=== PATIENT | female | born 1955 | race Caucasian/White ===

== ENCOUNTER 2016-10-08 12:09 | Observation (INO) | payer BC ==
[2016-10-08] MEDS ORDERED: Midazolam* 1 MG/ML 10 ML VIAL (10 MG) ONE (12:49)
[2016-10-08] MEDS ORDERED: Meperidine SYRINGE* 50 MG/ML ONE (12:49)
[2016-10-08] MEDS ORDERED: Clindamycin 600 MG IVPREMIX(* 600 MG/50 ML SDV ONE (12:50)
[2016-10-08] MEDS: D5W 1/2 NS KCl 20 Meq 1000 ML* 1,000 ML IV SCH (17:53)
[2016-10-08] MEDS: HYDROcodone/ACET. 7.5/325 LIQ* 15 ML UDC PO PRN ×2 (17:56→22:14)
[2016-10-09] MEDS: D5W 1/2 NS KCl 20 Meq 1000 ML* 1,000 ML IV SCH (04:09)
[2016-10-09] MEDS: HYDROcodone/ACET. 7.5/325 LIQ* 15 ML UDC PO PRN (05:01)
--- NOTE | 2016-10-09 05:42 | PRO ---
DATE: 10/08/16 - ROOM #[id number] REFERRING PHYSICIANS: Tonya Perales MD; Saturnino Jang MD; January Winchester MD * PROCEDURE: Upper gastrointestinal endoscopy and biopsy for CLOtest; percutaneous gastrostomy. 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 She had some chemo yesterday. Radiation will start in 6 days. Tomorrow, she will have a PowerPort placed. She has never had an upper endoscopy. She does not have chronic dyspeptic complaints. She does suffer from Crohn's disease and has had two colon resections. Informed consent was obtained during office discussions and today another opportunity to answer questions was given and all questions answered. ENDOSCOPIST: Dr. Courtney. MEDICATIONS: Midazolam 13, meperidine 50, and preprocedure clindamycin 600 mg IV. FINDINGS: She is a healthy-appearing, middle-aged woman, in no distress. EGD: Larynx - not seen as the scope was curved over the tongue and directly intubated. Esophagus - easily entered and the mucosa is normal in the upper, mid, and lower esophagus with the EG junction at 39 to 40, slightly loose, but there are no chronic changes and no peptic changes whatsoever. Stomach - generally normal mucosa in the cardia, fundus, body, and antrum. There was no erythema and no abnormality whatsoever. A CLOtest taken. Finger indentation was obtained at this time as the patient was supine. Duodenum - normal pylorus, bulb, and second through fourth portions. There were no scars or chronic changes at all. Scope was brought back into the stomach and reconfirming good transillumination and finger indentation. The skin was prepped and anesthetized with 1% lidocaine and then the trocar placed readily into the gastric cavity and the ___ __ performed in standard fashion. There were no obvious complications. A brief endoscopic recheck showed no bleeding. The external attachments were deployed. IMPRESSION: 1. Normal upper endoscopy. 2. Status post percutaneous gastrostomy placement - the patient will be admitted for observation and training to occur. Tomorrow, a PowerPort will be inserted. [id number]/[facility] #: [id number] [facility]
[2016-10-09] MEDS ORDERED: Ondansetron INJ* 2 MG/ML VIAL ONE (08:40)
[2016-10-09] MEDS ORDERED: Ondansetron INJ* 2 MG/ML VIAL IV PRN (09:21)
[2016-10-09] MEDS ORDERED: fentaNYL* 50 MCG/ML 5 ML VIAL (250 MCG VIAL) ONE (09:50)
[2016-10-09] MEDS ORDERED: Midazolam* 1 MG/ML 5 ML VIAL (5 MG) ONE (09:50)
[2016-10-09] MEDS ORDERED: Clindamycin 600 MG IVPREMIX(* 600 MG/50 ML SDV IV ONE (10:00)
[2016-10-09 12:45] VITALS: BP 122/71
--- NOTE | 2016-10-09 15:34 | DS ---
CC: Dr. Amaury Courtney; Dr. Perales; Dr. Saturnino Jang * DATE OF ADMISSION: 10/08/2016. DATE OF DISCHARGE: 10/09/2016. REASON FOR ADMISSION: Tongue cancer, PEG tube placement. HISTORY OF PRESENT ILLNESS: This is a kavin, 61-year-old woman who has a history of quiescent Crohn's disease who was recently diagnosed with tongue cancer. In preparation for chemo radiation, arrangements were made for outpatient PEG tube placement. This was successfully done endoscopically on . The patient was admitted overnight and this morning underwent a power port placement without incident. She is now feeling well and is ready for discharge. PAST MEDICAL HISTORY: Crohn's disease for which she takes Apriso. AMBULATORY MEDICATIONS: 1. Apriso two tablets daily. 2. Hydrocodone/acetaminophen as needed. HOSPITAL COURSE: The patient was admitted overnight. She had no fevers overnight. She required one dose of Lortab for pain, but did not require any later on on the day of discharge. She is tolerating a diet. The PEG tube site was looked at postop day number one. It was clean and dry without any drainage or significant tenderness. The patient was educated on PET tube maintenance. Literature was provided and nutrition and nursing supports were initiated for education on PEG tube maintenance and nutritional needs when they develop. It was recommended by the professor of literature for the patient to have six cans as a goal of Osmolite 1.2. [id number]/[facility] #: [id number] [facility]
--- NOTE | 2016-10-10 09:11 | RAD ---
CPT II Codes: 6045F Procedure performed: Mediport placement with sonographic and fluoroscopic guidance. Date of service: October 09, 2016 Indication for procedure: Oropharyngeal squamous cell carcinoma Comparison: PET/CT dated September 30, 2016 Contrast: None Fluoroscopy Time: 51 seconds Anesthesia: Conscious sedation with IV Fentanyl and Versed as well as local 1% lidocaine injected locally overlying the venotomy site, periclavicular area and upper chest. Conscious sedation time: Timeout: 1115 hours Case end: 1142 hours Total conscious sedation time: 27 minutes Additional medications: Clindamycin 600 mg. Procedure Narration and Imaging Findings: The risks and benefit of the procedure were discussed with the patient and informed consent was obtained. The patient received Clindamycin 600 mg immediately before the procedure for antibiotic prophylaxis. The patient was placed in the supine position in the fluoroscopy suite and the neck and upper chest was prepped and draped according to standard sterile protocol. A formal time out was performed by Dr. Underwood in the presence of the IR staff and all agreed on the patient, procedure and laterality. The skin overlying the right jugular vein and upper chest was anesthetized with 1% lidocaine. Real time ultrasound imaging shows the internal jugular vein is patent and determined to be adequate for catheter placement. Utilizing real time ultrasound visualization the internal jugular vein was accessed with an 18 gauge needle. An image was recorded and saved confirming appropriate intraluminal position of the needle tip. Blood return further confirmed position. Through the needle and under fluoroscopic control a 0.035" guidewire was advanced down the IVC confirming appropriate venous access. An image of the wire in the IVC was recorded. Over the wire a peel away sheath was gently advanced into the IVC under fluoroscopic guidance. Attention was now directed to creation of the subcutaneous mediport pocket. An incision below the clavicle was made and using blunt instrument dissection, a subcutaneous port was created. From the superior edge of the incision a tunneling device was used to advance the catheter from the pocket to the venotomy. The port end of the catheter was clamped to prevent air aspiration into the catheter. The catheter was pulled through and advanced into the peel away sheath under fluoroscopic guidance. The sheath was peeled away and the catheter tip was pulled back so that it terminated at the cavoatrial junction. The catheter was cut to a length of 23.5 cm, attached to the mediport and secured with the pericatheter cuff. The port was accessed with a Garcia needle and blood was aspirated from the port and then flushed with sterile saline with minimal effort. The port was then flushed with approximately 3mL of 100 units/mL of heparin. The pocket was flushed with sterile saline prior to inserting the mediport into the pocket. A fluoroscopic image was saved demonstrating appropriate position of all parts of the mediport before closure of the incision. The pocket was closed with interrupted absorbable suture then dressed with Steri strips and sterile gauze. The venotomy site was dressed with Steri strips, sterile gauze and Tegaderm. The patient tolerated the procedure well and left the angiography suite in stable condition. SUMMARY OF PROCEDURE, IMAGING FINDINGS AND INTERVENTIONS PERFORMED: 1. Diagnostic studies performed: * Visualization of the upper central venous system during catheter and wire advancement. * Sonographic evaluation of the right internal jugular vein to determine patency and flow as well as for needle guidance during venotomy. 2. Interpretation of diagnostic studies performed: * Sonographic imaging of the jugular vein showed the vein to be adequately patent, compressible and with normal venous color flow signal. * Venotomy was accessed with live sonographic guidance. An image of the needle tip in the lumen of the vein was recorded. 3. Surgical interventions performed: * Placement of a right internal jugular vein 8 [place] Bard Power Port ClearVUE with ultrasound and fluoroscopic guidance. 4. Interpretation of interventions performed: * Final fluoroscopic image demonstrates the Mediport to be appropriately positioned below the clavicle with the catheter tip terminating at the cavoatrial junction. PLAN: 1. External bandages can be removed 24 hours from the time of port insertion. 2. The overlying Steri strips should be allowed to slough off over the course of 1 week. 3. Port can be accessed immediately. 4. Please submit request for mediport removal to Interventional Radiology when the mediport is no longer necessary.
== END 2016-10-09 15:15 | disposition home or self-care (01) ==
LOC: ENDO 12:09 → SSU 17:22
PROVIDERS: ADMIT Internal Medicine Gastroenterology; ATTEND Internal Medicine Gastroenterology
PROC: 0DH63UZ Insertion of Feeding Device into Stomach, Percutaneous Approach (ICD-10-PCS; principal; 2016-10-08)
PROC: 0DB68ZZ Excision of Stomach, Via Natural or Artificial Opening Endoscopic (ICD-10-PCS; 2016-10-08)
DX: C01 Malignant neoplasm of base of tongue (principal); K50.90 Crohn's disease, unspecified, without complications; Z88.1 Allergy status to other antibiotic agents; Z88.0 Allergy status to penicillin; Z88.8 Allergy status to other drugs, medicaments and biological substances; Z79.899 Other long term (current) drug therapy
CPT/HCPCS: 36561; 76937; 77001; 87077; 87086; 96361; 96374; C1769; C1788; G0378; J1642; J2250; J2405; J3010

== ENCOUNTER 2016-12-02 14:17 | Inpatient (IN) | payer BC ==
[2016-12-02] MEDS ORDERED: Silver Sulfadiazine 1%* 20 GM TOPICAL PRN (15:29)
[2016-12-02] MEDS ORDERED: Magnesium Sulfate 2 GM IV* 2 GM/50 ML BAG IVPB ONE (15:38)
[2016-12-02] MEDS ORDERED: LORazepam INJ* 2 MG/ML 1 ML VIAL IV PUSH PRN (15:39)
[2016-12-02] MEDS ORDERED: HYDROmorphone* 1 MG/ML 1 ML SYR IV SLOW PU PRN (15:42)
[2016-12-02] MEDS ORDERED: Magic Mouth Was-BEN/MAAL/LIDO SWISH SWAL PRN (17:00)
[2016-12-02] MEDS: cefTRIAXone VIAL(*) 1,000 MG in NS 0.9% 50 ML* 50 ML IVPB SCH (17:37)
[2016-12-02] MEDS: NS 0.9% w/ 40 Meq KCL 1000 ML* 1,000 ML IV SCH (17:37)
[2016-12-02] MEDS: Sucralfate SUSP 1 GM/10 ml 10 ML UDC PO SCH ×2 (17:38→21:23)
[2016-12-02] MEDS: Enoxaparin(*) 40 MG/0.4 ML SYR SUBCUT SCH (17:38)
[2016-12-02] MEDS ORDERED: Sodium Phosphate ADULT ENEMA* 118 ml bottle PR ONE (17:45)
[2016-12-02] MEDS: fentaNYL PATCH 12 MCG/HR TRANSDERM SCH ×2 (17:46→18:17)
[2016-12-02] MEDS: fentaNYL Patch Check Q Shift 1 NOTE SCH (19:21)
[2016-12-02] MEDS: Metoclopramide IV* 5 MG/ML 2 ML VIAL IV SLOW PU SCH (21:24)
[2016-12-03 04:47] LABS: Hematocrit 33 % (35-47); Hemoglobin 11.3 g/dl (12.0-16.0); Mean Corpuscular HGB Conc 34 g/dl (31-36); Mean Corpuscular Hemoglobin 30 pg (27-31); Mean Corpuscular Volume 87 fL (80-97); Mean Platelet Volume 7 um3 (7.4-10.4); Red Blood Count 3.81 10^6/ul (4.0-5.4); Red Cell Distribution Width 15 % (10.5-15); White Blood Count 3.5 10^3/ul (3.5-10.8)
[2016-12-03] MEDS: NS 0.9% w/ 40 Meq KCL 1000 ML* 1,000 ML IV SCH ×2 (05:22→15:53)
[2016-12-03] MEDS: fentaNYL Patch Check Q Shift 1 NOTE SCH ×2 (06:42→18:42)
[2016-12-03 07:51] LABS: Albumin 3.3 g/dL (3.2-5.2); BUN/Creatinine Ratio 42.7 (8-20); Calcium 8.3 mg/dL (8.6-10.3); EGFR African American 90.6 (>60); EGFR Non-African American 70.4 (>60); Globulin 2.5 g/dL (2-4); HDL Cholesterol 32.6 mg/dL; Potassium 3.6 mmol/L (3.5-5.0); Total Bilirubin 0.3 mg/dL (0.2-1.0); Total Protein 5.8 g/dL (6.4-8.9)
[2016-12-03] MEDS ORDERED: Famotidine SUSP* 40 MG/5 ML ORAL.SUSP PEG TUBE SCH (09:00)
--- NOTE | 2016-12-03 09:35 | PN ---
Progress Note - Progress Note Date of Service: 12/03/16 SOAP: Subjective: []A little better then yesterday. More energy. Was nauseated last night following carafate, but thinks the IV reglan helped some and is taking sips of water. Refused enema last night because "I don't feel like I have anything in there." Is not passing gas and last BM now over 1 week ago, fortunately no evidence for obstruction on x-ray. Still has some lower chest pain/almost epigastric. No ectopy on tele with negative troponins. Medications: Enoxaparin Sodium (Lovenox(*)) 40 mg SUBCUT Q24H [facility] Last Admin: 12/02/16 17:38 Dose: 40 mg Famotidine (Pepcid Iv*) 20 mg IV SLOW PU BID [facility] Fentanyl (Duragesic Patch 12 Mcg/Hr *) 24 mcg TRANSDERM Q72H [facility] Last Admin: 12/02/16 18:17 Dose: 24 mcg Hydromorphone HCl (Dilaudid Iv*) 0.5 mg IV SLOW PU Q4H PRN PRN Reason: PAIN Potassium Chloride/Sodium Chloride (Ns 0.9% W/ 40 Meq Kcl 1000 Ml*) 1,000 mls @ 125 mls/hr IV PER RATE [facility] Last Admin: 12/03/16 05:22 Dose: 125 mls/hr Ceftriaxone Sodium 1,000 mg/ (Sodium Chloride) 50 mls @ 200 mls/hr IVPB Q24H [facility] Last Admin: 12/02/16 17:37 Dose: 200 mls/hr Lorazepam (Ativan Inj*) 0.5 mg IV PUSH Q4H PRN PRN Reason: NAUSEA Last Admin: 12/02/16 17:54 Dose: 0.5 mg Magnesium Citrate (Citrate Of Magnesia*) 30 ml PEG TUBE DAILY [facility] Metoclopramide HCl (Reglan Iv*) 10 mg IV SLOW PU TID [facility] Last Admin: 12/02/16 21:24 Dose: 10 mg Multi-Ingredient Mouthwash/Gargle (Magic Mouth Was-Anthony/Maal/Lido*) 10 ml SWISH SWAL QID PRN PRN Reason: PAIN Pharmacy Profile Note (Fentanyl Patch Check Q Shift) 1 note N/A [phone] [facility] Last Admin: 12/03/16 06:42 Dose: 1 note Potassium Chloride (Klor-Con Liquid*) 20 meq PEG TUBE DAILY [facility] Silver Sulfadiazine (Silvadine 1%*) 1 applic TOPICAL TID PRN PRN Reason: PAIN Last Admin: 12/02/16 17:48 Dose: 1 applic Sucralfate (Sucralfate Susp) 1 gm PO QID MP Last Admin: 12/02/16 21:23 Dose: Not Given Objective: [] Vital Signs Temp Pulse Resp BP Pulse Ox 99.2 F 92 16 139/73 97 12/03/16 04:05 12/03/16 04:05 12/03/16 04:05 12/03/16 04:05 12/03/16 04:05 A&Ox3, EOMI, LONG, neuro grossly non-focal HRR, SR on tele, slight diastolic murmur noted, S1S2 LS clear bilat. throughout with even and non-labored resp. +BS, abd. soft and non-tender, x-ray with moderate amt. of stool Laboratory Results - last 24 hr 12/02/16 12/02/16 12/03/16 17:04 22:35 04:42 WBC 3.5 RBC 3.81 L Hgb 11.3 L Hct 33 L MCV 87 MCH 30 MCHC 34 RDW 15 Plt Count 186 MPV 7 L Neut % (Auto) 76.7 Lymph % (Auto) 9.5 L [place] % (Auto) 12.3 H Eos % (Auto) 0.6 Baso % (Auto) 0.9 Absolute Neuts (auto) 2.7 Absolute Lymphs (auto) 0.3 L Absolute Monos (auto) 0.4 Absolute Eos (auto) 0 Absolute Basos (auto) 0 Absolute Nucleated RBC 0 Nucleated RBC % 0.1 Sodium Potassium Chloride Carbon Dioxide Anion Gap BUN Creatinine Est GFR ( Amer) Est GFR (Non-Af Amer) BUN/Creatinine Ratio Glucose Calcium Total Bilirubin AST ALT Alkaline Phosphatase Troponin I 0.00 0.00 Total Protein Albumin Globulin Albumin/Globulin Ratio Triglycerides Cholesterol LDL Cholesterol HDL Cholesterol 12/03/16 04:42 WBC RBC Hgb Hct MCV MCH MCHC RDW Plt Count MPV Neut % (Auto) Lymph % (Auto) [place] % (Auto) Eos % (Auto) Baso % (Auto) Absolute Neuts (auto) Absolute Lymphs (auto) Absolute Monos (auto) Absolute Eos (auto) Absolute Basos (auto) Absolute Nucleated RBC Nucleated RBC % Sodium 137 Potassium 3.6 Chloride 105 Carbon Dioxide 22 Anion Gap 10 BUN 35 H Creatinine 0.82 Est GFR ( Amer) 90.6 Est GFR (Non-Af Amer) 70.4 BUN/Creatinine Ratio 42.7 H Glucose 79 Calcium 8.3 L Total Bilirubin 0.30 AST 22 ALT 26 Alkaline Phosphatase 56 Troponin I Total Protein 5.8 L Albumin 3.3 Globulin 2.5 Albumin/Globulin Ratio 1.3 Triglycerides 158 Cholesterol 204 LDL Cholesterol 140 HDL Cholesterol 32.6 Assessment: []61 yo female with 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 Her chest pain does not appear to be cardiac in nature and I suspect is r/t reflux and radiation S/E. Plan: []1. Acute Renal Failure: pre-renal r/t dehydration, cont. IV fluids with KCl, however will decrease rate. 2. Constipation: secondary to narcotics, moderate amt. of stool and suggest trying enema today, no evidence for obstruction and will therefore start PEG tube feedings continuous very slowly 3. Nausea/Vomiting: long standing, cont. scheduled reglan 4. Pain: appears reasonably controlled for now with Fentanyl 25 mcg 5. E.Coli UTI: cont. abx. 6. Chest pain: likely gastric in nature, d/c tele and switch Famotidine to IV while inpt.
[2016-12-03 09:49] LABS: Magnesium 2.1 mg/dL (1.9-2.7)
[2016-12-03] MEDS: Famotidine IV* 10 MG/ML 2 ML (20 mg) IV SLOW PU SCH ×2 (10:21→21:23)
[2016-12-03] MEDS: Metoclopramide IV* 5 MG/ML 2 ML VIAL IV SLOW PU SCH ×3 (10:21→21:23)
[2016-12-03] MEDS: Sucralfate SUSP 1 GM/10 ml 10 ML UDC PO SCH ×4 (10:22→21:23)
[2016-12-03] MEDS: Potassium Chloride LIQUID* 20 MEQ PACKET PEG TUBE SCH (11:04)
[2016-12-03] MEDS: Magnesium CITRATE* 300 ML BTL PEG TUBE SCH (11:04)
[2016-12-03] MEDS: cefTRIAXone VIAL(*) 1,000 MG in NS 0.9% 50 ML* 50 ML IVPB SCH (16:38)
[2016-12-03] MEDS: Enoxaparin(*) 40 MG/0.4 ML SYR SUBCUT SCH (16:38)
[2016-12-04 05:46] LABS: Hematocrit 33 % (35-47); Mean Corpuscular HGB Conc 33 g/dl (31-36); Mean Corpuscular Hemoglobin 29 pg (27-31); Mean Corpuscular Volume 88 fL (80-97); Mean Platelet Volume 7 um3 (7.4-10.4); Red Blood Count 3.73 10^6/ul (4.0-5.4); Red Cell Distribution Width 15 % (10.5-15)
[2016-12-04] MEDS: NS 0.9% w/ 40 Meq KCL 1000 ML* 1,000 ML IV SCH (05:46)
[2016-12-04 05:47] LABS: Comments Flag Yes; White Blood Count 2.8 10^3/ul (3.5-10.8)
[2016-12-04 05:59] LABS: Albumin 3.5 g/dL (3.2-5.2); BUN/Creatinine Ratio 27.7 (8-20); Calcium 8.9 mg/dL (8.6-10.3); EGFR African American 89.3 (>60); EGFR Non-African American 69.4 (>60); Globulin 2.5 g/dL (2-4); Magnesium 1.5 mg/dL (1.9-2.7); Potassium 3.6 mmol/L (3.5-5.0); Total Bilirubin 0.3 mg/dL (0.2-1.0)
[2016-12-04] MEDS: fentaNYL Patch Check Q Shift 1 NOTE SCH (06:47)
[2016-12-04 07:26] VITALS: BP 140/71
[2016-12-04] MEDS: Sucralfate SUSP 1 GM/10 ml 10 ML UDC PO SCH ×2 (07:48→11:50)
[2016-12-04] MEDS: Magnesium CITRATE* 300 ML BTL PEG TUBE SCH (07:48)
[2016-12-04] MEDS: Metoclopramide IV* 5 MG/ML 2 ML VIAL IV SLOW PU SCH (07:50)
[2016-12-04] MEDS: Famotidine IV* 10 MG/ML 2 ML (20 mg) IV SLOW PU SCH (07:50)
[2016-12-04] MEDS: Potassium Chloride LIQUID* 20 MEQ PACKET PEG TUBE SCH (07:57)
[2016-12-04] MEDS ORDERED: Magnesium Sulf 4 GM/100 ML IV* 4,000 MG/100 ML BAG IVPB ONE (10:15)
--- NOTE | 2016-12-04 12:56 | DS ---
- Discharge Summary Admission Date: 12/02/16 Discharge Date: 12/04/16 Discharge Diagnosis: 1. Chest pain: non-cardiac in origin, likely reflux 2. Nausea & Vomiting: improved control with scheduled Reglan 3. Acute Renal Failure: prerenal r/t dehydration secondary to poor PO intake 4. Head & Neck Cancer: s/p definitive chemo/XRT 5. Hypokalemia and Hypomagnesemia: secondary to poor PO intake and cont.d wasting from Cisplatin Discharge Medications: 1. Lorazepam 0.5 mg SL q 4hrs PRN nausea 2. Metoclopramide 10 mg PEG q8 hrs 3. Fentanyl 25 mcg/hr q72 hrs 4. Famotidine 5 mL PEG qday 5. Osmolite 1.2 ruthy @ 50 ml/hr continuous PEG 6. Potassium Chloride 20 mEq PEG qday 7. Pantoprazole 40 mg PEG qday 8. MagCitrate 30 mL PEG qday 9. Silvadine 1% topically TID 10. Miracle Mouth Wash 2 tsp. QID PRN mouth pain Hospital Course: Please see admission note for full H&P, however briefly Mrs. Latif has recently completed her treated for head and neck cancer with chemo/XRT with complicated course. She presented to the office 12/02 for planned hydration r/t very poor intake with tx. and subsequent dehydration. In the office she c/o chest pain to the upper epigastric region and was subsequently admitted for work -up for any cardiac event and to provide overnight hydration d/t acute renal failure on presentation. Her work-up for cardiac related chest pain was negative and ultimately it was felt that the chest pain was r/t reflux. On admission she had not had a BM in nearly 7 days and an x-ray ruled out SBO. Although she refused an enema she had a BM this AM. During her admission she received IV hydration and IV electrolyte replacement. Once a SBO was ruled out we resumed tube feedings continuously but with significant nausea (felt ultimately to be r/t RT mucositis) it was started very slowly. At this time Mrs. Latif feels better then admission and feels she can manage well at home. She will be d/cd home on all meds via PEG (including electrolytes) and will follow-up in our office in 2 days for repeat labs and IV hydration. She received IV abx. for zhang-sensitive E.Coli UTI while inpatient and will be d/cd back home on Bactrim DS to complete 5 more days for a total week of abx. Plan of care was reviewed at length with pt. and , both who state good understanding of plan of care. 40 min spent with >50% face to face counseling
[2016-12-04] MEDS ORDERED: Metoclopramide LIQ* 10 MG/10 ML ORAL.SOLN PEG TUBE SCH (14:00)
[2016-12-05] MEDS ORDERED: Famotidine SUSP* 40 MG/5 ML ORAL.SUSP PEG TUBE SCH (09:00)
== END 2016-12-04 14:52 | disposition home or self-care (01) | DRG 243 ==
LOC: MEDTELE 16:29
PROVIDERS: ADMIT Internal Medicine Hematology & Oncology; ATTEND Internal Medicine Hematology & Oncology
DX: K21.9 Gastro-esophageal reflux disease without esophagitis (principal); N17.9 Acute kidney failure, unspecified; A69.20 Lyme disease, unspecified; G62.9 Polyneuropathy, unspecified; E83.42 Hypomagnesemia; K50.90 Crohn's disease, unspecified, without complications; N39.0 Urinary tract infection, site not specified; R11.2 Nausea with vomiting, unspecified; K59.03 Drug induced constipation; C01 Malignant neoplasm of base of tongue; M19.90 Unspecified osteoarthritis, unspecified site; E87.6 Hypokalemia; B96.20 Unspecified Escherichia coli [E. coli] as the cause of diseases classified elsewhere; R79.89 Other specified abnormal findings of blood chemistry; E86.0 Dehydration; T40.605A Adverse effect of unspecified narcotics, initial encounter; C76.0 Malignant neoplasm of head, face and neck; Z88.8 Allergy status to other drugs, medicaments and biological substances; Z88.0 Allergy status to penicillin; Z91.013 Allergy to seafood; Z90.710 Acquired absence of both cervix and uterus; Z80.0 Family history of malignant neoplasm of digestive organs; Z80.8 Family history of malignant neoplasm of other organs or systems; Z83.2 Family history of diseases of the blood and blood-forming organs and certain disorders involving the immune mechanism
CPT/HCPCS: 36415; 74020; 80053; 80061; 83735; 84484; 85025; 93005; 99223; 99232; 99239; A9270-GY; J0696; J1642; J1650; J2060; J2765; J2997; J3475